=== PATIENT | male | born 1980 | race Caucasian/White ===

== ENCOUNTER 2017-06-30 17:16 | Emergency (ER) | payer OTHER ==
[~2017-06-30] VITALS: Ht 182.9 cm; Wt 132.9 kg
[2017-06-30 17:41] VITALS: BP 149/85
--- NOTE | 2017-06-30 17:47 | NUR ---
PATIENT TO OF#3 AT THIS TIME.
--- NOTE | 2017-06-30 18:06 | NUR ---
PATIENT PRESENTS TO ED WITH ABD PAIN LUQ S/P FALL WHILE IN THE ATTIC X1 WEEK AGO; SEEN AT [facility] ON 06/27/17 HX HTN .DENIES N/V/D; SKIN IS PINK/WARM/DRY; AAOX4 WITH EVEN AND STEADY GAIT; LUNGS CLEAR BL; HR EVEN AND REGULAR; PT DENIES ANY FEVER, CP, SOB, OR COUGH AT THIS TIME; PATIENT STATES PAIN OF 10/10 AT THIS TIME; PATIENT POSITIONED FOR COMFORT; HOB ELEVATED; BEDRAILS UP X2; BED DOWN. ER MD MADE AWARE OF PT STATUS.
--- NOTE | 2017-06-30 18:40 | NUR ---
PT SITTING IN CHAIR, NO DISTRESS NOTED, PILLOW PUT ON BACK CLAIMED I FEEL MUCH BETTER.
--- NOTE | 2017-06-30 19:00 | NUR ---
RECEIVED REPORT FROM CHAN CLEMENTS, TRANSFER OF CARE AT THIS TIME.
[2017-06-30 19:27] VITALS: BP 143/84
--- NOTE | 2017-06-30 19:27 | NUR ---
Patient discharged with v/s stable. Written and verbal after care instructions given and explained. Patient alert, oriented and verbalized understanding of instructions. Ambulatory with steady gait. All questions addressed prior to discharge. ID band removed. Patient advised to follow up with PMD. Rx of TRAMADOL HYDROCHLORIDE 50MG given. Patient educated on indication of medication including possible reaction and side effects. Opportunity to ask questions provided and answered.
== END 2017-06-30 19:27 | disposition home or self-care (01) ==
LOC: MED 17:16
DX: S20.212A Contusion of left front wall of thorax, initial encounter (principal); I10 Essential (primary) hypertension; W18.39XA Other fall on same level, initial encounter; Y93.89 Activity, other specified; Y92.89 Other specified places as the place of occurrence of the external cause; Y99.8 Other external cause status
CPT/HCPCS: 99283